=== PATIENT | male | born 1995 | race Caucasian/White ===

== ENCOUNTER 2018-04-03 18:47 | Emergency (ER) | payer OTHER ==
[~2018-04-03] VITALS: Ht 162.6 cm; Wt 61.4 kg
[2018-04-03 19:40] VITALS: BP 105/60
== END 2018-04-03 19:41 | DRG 605 ==
LOC: ED 18:47
PROC: 0HQ0XZZ Repair Scalp Skin, External Approach (ICD-10-PCS; principal; 2018-04-03)
DX: S01.01XA Laceration without foreign body of scalp, initial encounter (principal); F17.210 Nicotine dependence, cigarettes, uncomplicated; Y00.XXXA Assault by blunt object, initial encounter; Y92.149 Unspecified place in prison as the place of occurrence of the external cause